=== PATIENT | male | born 1985 | race Caucasian/White ===

== ENCOUNTER 2023-02-07 13:58 | Emergency (ER) | payer OTHER ==
[2023-02-07] MEDS ORDERED: diphenhydrAMINE 50 MG/ML VIAL ONE (14:05)
[2023-02-07] MEDS ORDERED: methylPREDNISolone Sod Succ/PF 125 MG/2 ML VIAL ONE (14:05)
[2023-02-07] MEDS ORDERED: Famotidine/PF 20 mg/2ml Vial ONE (14:05)
== END 2023-02-07 15:52 | disposition home or self-care (01) ==
LOC: EDBD 13:58 → NAV ERS 13:58
DX: T63.441A Toxic effect of venom of bees, accidental (unintentional), initial encounter (principal)
CPT/HCPCS: 96374; 96375; J1200; J2930; S0028